=== PATIENT | female | born 1980 | race Caucasian/White ===

== ENCOUNTER 2017-12-19 17:16 | Emergency (ER) | payer OTHER ==
[~2017-12-19] VITALS: Ht 180.3 cm; Wt 88.5 kg
[~2017-12-19 17:16] MED LIST: TUSSI-PRES LIQ118 ML PO; ZITHROMAX500 MG PO
[2017-12-19] MEDS ORDERED: LEVAQUIN500 MG (17:21)
== END 2017-12-19 19:40 | disposition home or self-care (01) ==
LOC: ER 17:16
DX: N39.0 Urinary tract infection, site not specified (principal); R53.1 Weakness

== ENCOUNTER 2018-09-02 03:22 | Emergency (ER) | payer OTHER ==
[~2018-09-02] VITALS: Ht 180.3 cm; Wt 95.3 kg
[~2018-09-02 03:22] MED LIST changes: +LEVAQUIN500 MG
[2018-09-02] MEDS ORDERED: ULTRACET PO (06:02)
== END 2018-09-02 06:36 | disposition home or self-care (01) ==
LOC: ER 03:22
DX: S93.402A Sprain of unspecified ligament of left ankle, initial encounter (principal); X50.3XXA Overexertion from repetitive movements, initial encounter; Y93.89 Activity, other specified; Y92.59 Other trade areas as the place of occurrence of the external cause; Y99.8 Other external cause status

== ENCOUNTER 2019-12-13 09:20 | Emergency (ER) | payer OTHER ==
[~2019-12-13] VITALS: Ht 180.3 cm; Wt 89.8 kg
[~2019-12-13 09:20] MED LIST changes: +ULTRACET PO
[2019-12-13] MEDS ORDERED: TENCON 50-3251 EACH (09:35)
== END 2019-12-13 13:43 | disposition home or self-care (01) ==
LOC: ER 09:20
DX: G43.909 Migraine, unspecified, not intractable, without status migrainosus (principal)